=== PATIENT | female | born 2000 | race Caucasian/White ===

== ENCOUNTER 2018-12-03 15:05 | Emergency (ER) | payer BC ==
--- NOTE | 2018-12-03 15:25 | EDPHY ---
H & P Time Seen by Provider: 12/03/18 15:12 HPI/ROS: CHIEF COMPLAINT: Chest pain HISTORY OF PRESENT ILLNESS: The patient is a 18-year-old female who presents emergency department with chest pain. She has had intermittent episodes of chest pain for the past 3 years. She was seen in the hospital 2 years ago with a negative workup. She states that this episode started this morning when she woke up. Has been persistent since that time. She describes bilateral subscapular pain radiating to her bilateral anterior chest. Pain is moderate. It is not worse with movement or position. She denies any shortness of breath. No nausea or vomiting. No fevers or chills. No recent travel. No leg pain or swelling. Patient has no family history of cardiac disease or clotting disorder. REVIEW OF SYSTEMS: 10 systems were reveiwed and are negative with the exception of the elements mentioned in the history of present illness. Past Medical/Surgical History: Includes hospitalization for menstrual cramps Past surgical history: Negative Social history: Patient smokes cigarettes Smoking Status: Current every day smoker Physical Exam: Vitals noted. Tachycardic GENERAL: Tearful, in no acute distress, alert. HEENT: Eyes normal to inspection, normal pharynx, no signs of dehydration. NECK: Normal, supple. RESPIRATORY: Clear to auscultation bilaterally, no rales, rhonchi or wheezing. CVS: Regular rate and rhythm, no rubs, murmurs, or gallops. ABDOMEN: Soft, nontender, nondistended, no organomegaly. BACK: Normal to inspection, no CVA tenderness. SKIN: Normal color, no rash, warm, dry. No pallor. EXTREMITIES: No pedal edema, no calf tenderness, no Homans sign or cords, no joint swelling. NEURO/PSYCH: Alert and oriented, mildly anxious, normal motor sensory exam. No obvious cranial nerve deficit. Constitutional: Initial Vital Signs Temperature (C) 36.7 C 12/03/18 15:09 Heart Rate 112 H 12/03/18 15:09 Respiratory Rate 18 12/03/18 15:09 Blood Pressure 107/80 12/03/18 15:09 O2 Sat (%) 99 12/03/18 15:09 O2 Delivery Mode Room Air Medical Decision Making ED Course/Re-evaluation: In the emergency department I discussed possible etiologies with the patient. I answered all her questions. IV was placed. Laboratory studies, EKG and chest x-ray were obtained. Patient was given Toradol 30 mg IV and Ativan 0.5 mg IV. EKG shows normal sinus rhythm, normal rate, normal axis, normal intervals. There are no ST or T-wave abnormalities. EKG is normal as interpreted by me. Differential Diagnosis: My differential includes but is not limited to ACS, acute [place], pulmonary embolus , dissection, aneurysm, pleurisy, bronchitis, pneumonia, GERD, peptic ulcer disease, hiatal hernia, anxiety - Data Points Laboratory Results: Laboratory Results 12/03/18 15:44 12/03/18 12/03/18 12/03/18 15:47 15:44 15:44 WBC RBC Hgb Hct MCV MCH MCHC RDW Plt Count MPV Neut % (Auto) Lymph % (Auto) [place] % (Auto) Eos % (Auto) Baso % (Auto) Nucleat RBC Rel Count Absolute Neuts (auto) Absolute Lymphs (auto) Absolute Monos (auto) Absolute Eos (auto) Absolute Basos (auto) Absolute Nucleated RBC Immature Gran % Immature Gran # Sodium Pending Potassium Pending Chloride Pending Carbon Dioxide Pending Anion Gap Pending BUN Pending Creatinine Pending Estimated GFR Pending Glucose Pending Calcium Pending POC Troponin I 0.00 ng/mL ng/mL (0.00-0.08) Beta HCG, Qual Pending 12/03/18 15:44 WBC 7.03 10^3/uL 10^3/uL (3.80-9.50) RBC 4.86 10^6/uL 10^6/uL (4.18-5.33) Hgb 14.3 g/dL g/dL (12.6-16.3) Hct 43.1 % % (38.0-47.0) MCV 88.7 fL fL (81.5-99.8) MCH 29.4 pg pg (27.9-34.1) MCHC 33.2 g/dL g/dL (32.4-36.7) RDW 12.4 % % (11.5-15.2) Plt Count 189 10^3/uL 10^3/uL (150-400) MPV 12.1 fL H fL (8.7-11.7) Neut % (Auto) 72.9 % % (39.3-74.2) Lymph % (Auto) 19.9 % % (15.0-45.0) [place] % (Auto) 6.1 % % (4.5-13.0) Eos % (Auto) 0.6 % % (0.6-7.6) Baso % (Auto) 0.4 % % (0.3-1.7) Nucleat RBC Rel Count 0.0 % % (0.0-0.2) Absolute Neuts (auto) 5.12 10^3/uL 10^3/uL (1.70-6.50) Absolute Lymphs (auto) 1.40 10^3/uL 10^3/uL (1.00-3.00) Absolute Monos (auto) 0.43 10^3/uL 10^3/uL (0.30-0.80) Absolute Eos (auto) 0.04 10^3/uL 10^3/uL (0.03-0.40) Absolute Basos (auto) 0.03 10^3/uL 10^3/uL (0.02-0.10) Absolute Nucleated RBC 0.00 10^3/uL 10^3/uL (0-0.01) Immature Gran % 0.1 % % (0.0-1.1) Immature Gran # 0.01 10^3/uL 10^3/uL (0.00-0.10) Sodium Potassium Chloride Carbon Dioxide Anion Gap BUN Creatinine Estimated GFR Glucose Calcium POC Troponin I Beta HCG, Qual Medications Given: Discontinued Medications Ketorolac Tromethamine (Toradol) 30 mg IVP EDNOW ONE Stop: 12/03/18 15:29 Last Admin: 12/03/18 15:38 Dose: 30 mg Lorazepam (Ativan Injection) 0.5 mg IVP EDNOW ONE Stop: 12/03/18 15:29 Last Admin: 12/03/18 15:39 Dose: 0.5 mg Point of Care Test Results: Chemistry 12/03/18 15:47 POC Troponin I 0.00 ng/mL ng/mL (0.00-0.08) Departure - Departure Disposition: Home, Routine, Self-Care Clinical Impression: Chest pain Qualifiers: Chest pain type: unspecified Qualified Code(s): R07.9 - Chest pain, unspecified Condition: Good Instructions: Chest Pain (ED) Additional Instructions: Return with increasing chest pain, shortness of breath, fever or any other concerns. Referrals: [facility] [Provider Group] - 2-3 days without fail
[2018-12-03] MEDS ORDERED: KETOROLAC 30 MG/1 ML SDV IVP ONE (15:28)
[2018-12-03] MEDS ORDERED: LORazepam 2 MG/ML INJ IVP ONE (15:28)
[2018-12-03 15:56] LABS: PLATELET COUNT 189 10^3/uL (150-400)
[2018-12-03 18:46] VITALS: BP 120/84
--- NOTE | 2018-12-03 22:13 | CPEKG ---
Test Reason : OPEN Blood Pressure : / mmHG Vent. Rate : 062 BPM Atrial Rate : 061 BPM P-R Int : 121 ms QRS Dur : 089 ms QT Int : 396 ms P-R-T Axes : 025 057 040 degrees QTc Int : 402 ms Sinus rhythm Confirmed by Geneva Cardenas ([id number]) on 12/03/2018 10:12:24 PM Referred By: GENEVA CARDENAS Confirmed By:Geneva Cardenas
== END 2018-12-03 18:47 | disposition home or self-care (01) ==
DX: R07.9 Chest pain, unspecified (principal); F17.200 Nicotine dependence, unspecified, uncomplicated
CPT/HCPCS: 84484-ER; 96374; J1885; J2060